=== PATIENT | female | born 1955 | race Caucasian/White ===

== ENCOUNTER 2017-10-28 12:49 | Emergency (ER) | payer MEDICARE, OTHER ==
[~2017-10-28 12:49] MED LIST: BISA5TAB PO; DIAZ5 PO; LACT PO; LEVO.15 PO; TEMA15CA PO; VITA-13 PO; [UNRECOGNIZED DRUG - OTHER]
[2017-10-28 12:55] VITALS: BP 98/56; PULSE 66; RESP 18; TEMP 97.9; O2SAT 97
[2017-10-28] MEDS ORDERED: SODIUM CHLORIDE 0.9% FLUSH 10 ML FLUSH IVF PRN (13:15)
[2017-10-28 13:41] VITALS: O2SAT 98
--- NOTE | 2017-10-28 14:42 | RADRPT ---
EXAM DATE: 10/28/2017 2:02 PM EDT AGE/SEX: 62 years / Female INDICATIONS: Fell out of wheelchair onto right side today, history of quadriplegia CLINICAL DATA: This is the patient's initial encounter. Patient reports that signs and symptoms have been present for 1 day and indicates a pain score of 0/10. MEDICAL/SURGICAL HISTORY: . quadriplegia, osteoporosis . left femur ORIF COMPARISON: No prior [facility] exams available for comparison. FINDINGS: There is some osteopenia of the bony structures. The bony structures of the pelvis are cathie sly intact. There is good alignment of the SI joints and pubic symphysis. No acute fracture or joint dislocation is seen at the right hip. There is evidence of previous internal fixation of the proximal left femur. There is some mild degenerative arthritis of both hip joints. CONCLUSION: No acute fracture or joint dislocation. Electronically signed by: Neville Silva MD 10/28/2017 2:41 PM EDT
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
[2017-10-28] MEDS ORDERED: TETANUS/DIPHTHERIA TOXOID ADULT 0.5 ML VIAL IM ONE (15:45)
[2017-10-28 16:21] VITALS: BP 100/54
== END 2017-10-28 16:37 | disposition home or self-care (01) ==
LOC: NEPD 12:49
DX: S40.811A Abrasion of right upper arm, initial encounter (principal); S70.01XA Contusion of right hip, initial encounter; S70.11XA Contusion of right thigh, initial encounter; G82.50 Quadriplegia, unspecified; W05.0XXA Fall from non-moving wheelchair, initial encounter; Y93.K9 Activity, other involving animal care; Z23 Encounter for immunization
CPT/HCPCS: 51702; 73502; 90471; 90714